=== PATIENT | female | born 1995 | race Caucasian/White ===

== ENCOUNTER 2022-10-02 00:32 | Emergency (ER) | payer OTHER ==
--- NOTE | 2022-10-02 01:03 | ED Physician Documentation ---
PD HPI MHE - Stated complaint Stated Complaint: SI - History obtained from History obtained from: Patient, Family (spouse) - History of Present Illness Primary symptom: Suicidal ideation, Depression, Anxiety Timing - onset: How many months ago (has had increasing anxiety and depression with suidical feelings for 2 months, increased the past week or so without obvious trigger. Does not have a specific plan. No suicidal gestures. Prior history of self-cutting but not in the past few years. Had more intense feeling of wanting to recent.) Contributing factors: Substance abuse - ETOH (had had alcohol use heavily up to a month ago and has been sober since that time.). No: Sig other Similar symptoms before: Diagnosis (depression when teenager with suicidal shola ation but no attempts. Voluntary hospitalization at that time. Trialed 2 different SSRIs and trazodone at night by provider without consistent improvement. Had regular counseling then. No counseling nor meds currently.) Recently seen: Not recently seen Review of Systems Constitutional: denies: Fever, Chills Nose: denies: Rhinorrhea / runny nose, Congestion Throat: denies: Sore throat Respiratory: denies: Cough GI: denies: Nausea, Vomiting, Diarrhea : reports: Irregular menses. denies: Now EGA Psychiatric: reports: Depressed, Anxiety. denies: Homicidal, Delusions, In somnia PD PAST MEDICAL HISTORY - Past Medical History Cardiovascular: None Respiratory: None Neuro: None Endocrine/Autoimmune: None - Present Medications Home Medications: Ambulatory Orders Medication Instructions Recorded Confirmed LORazepam [Ativan] 0.5 mg PO DAILY PRN #10 tablet 10/02/22 Sertraline [Zoloft] 50 mg PO DAILY 30 Days #30 tablet 10/02/22 - Allergies Allergies/Adverse Reactions: Allergies Allergy/AdvReac Type Severity Reaction Status Date / Time No Known Drug Allergies Allergy Verified 10/02/22 01:03 - Living Situation Living Situation: reports: With spouse/s.o. Living Arrangement: reports: At home - Social History Does the pt smoke?: No Substance Use and Type: Marijuana PD ED PE NORMAL - Vitals Vital signs reviewed: Yes - General General: Alert and oriented X 3 (accompanied by her , who appears very supportive. ), Well developed/nourished, Other (tearful and anxious. expressed fear of wanting to hurt herself. Has forward thinking of healthy relationship with her . ) - Neck Neck: Supple, no meningeal sign - Cardiac Cardiac: RRR, No murmur - Respiratory Respiratory: Clear bilaterally - Abdomen Abdomen: Soft, Non tender - Derm Derm: Normal color, Warm and dry - Neuro Neuro: Alert and oriented X 3, No motor deficit, Normal speech - Psych Psych: No: Normal mood (tearful, anxious, but expressive and conversant. ) Results - Vitals Vitals: Vital Signs - 24 hr 10/02/22 10/02/22 10/02/22 00:59 05:21 06:47 Temperature 36.4 C L 36.6 C 97.8 C H Heart Rate 98 86 84 Respiratory 16 16 16 Rate Blood Pressure 136/91 H 114/70 123/71 O2 Saturation 98 99 97 Oxygen O2 Source Room air - Labs Labs: Laboratory Tests 10/02/22 10/02/22 10/02/22 00:50 00:50 00:50 WBC RBC Hgb Hct MCV MCH MCHC RDW Plt Count MPV Neut # (Auto) Lymph # (Auto) [place] # (Auto) Eos # (Auto) Baso # (Auto) Absolute Nucleated RBC Nucleated RBC % Sodium Potassium Chloride Carbon Dioxide Anion Gap BUN Creatinine Estimated GFR (MDRD) Glucose Calcium Total Bilirubin AST ALT Alkaline Phosphatase Total Protein Albumin Globulin Albumin/Globulin Ratio Lipase TSH Urine Color YELLOW Urine Clarity CLEAR Urine pH 6.0 Ur Specific Thorp >=1.030 H Urine Protein 30 H Urine Glucose (UA) NEGATIVE Urine Ketones NEGATIVE Urine Occult Blood LARGE H Urine Nitrite NEGATIVE Urine Bilirubin NEGATIVE Urine Urobilinogen 0.2 (NORMAL) Ur Leukocyte Esterase NEGATIVE Urine RBC 6-10 H Urine WBC 0-3 Ur Squamous Epith Cells FEW Squamous Urine Crystals 0-2 Calcium Oxalate Amorphous Sediment Marked Urine Bacteria None Seen Ur Microscopic Review INDICATED Urine Culture Comments NOT INDICATED Urine HCG, Qual NEGATIVE Salicylates Urine Opiates Screen NEGATIVE Ur Oxycodone Screen NEGATIVE Urine Methadone Screen NEGATIVE Ur Propoxyphene Screen NEGATIVE Acetaminophen Ur Barbiturates Screen NEGATIVE Ur Tricyclics Screen NEGATIVE Ur Phencyclidine Scrn NEGATIVE Ur Amphetamine Screen NEGATIVE U Methamphetamines Scrn NEGATIVE U Benzodiazepines Scrn NEGATIVE Urine Cocaine Screen NEGATIVE U Cannabinoids Screen POSITIVE H Ethyl Alcohol 10/02/22 10/02/22 10/02/22 01:11 01:11 01:11 WBC 13.9 H RBC 5.02 Hgb 14.3 Hct 43.6 MCV 86.9 MCH 28.5 MCHC 32.8 RDW 12.8 Plt Count 314 MPV 9.6 Neut # (Auto) 10.4 H Lymph # (Auto) 2.4 [place] # (Auto) 0.9 Eos # (Auto) 0.1 Baso # (Auto) 0.1 Absolute Nucleated RBC 0.00 Nucleated RBC % 0.0 Sodium 139 Potassium 3.7 Chloride 102 Carbon Dioxide 26 Anion Gap 11.0 BUN 11 Creatinine 0.9 Estimated GFR (MDRD) 77 L Glucose 112 H Calcium 9.1 Total Bilirubin 0.5 AST 20 ALT 17 Alkaline Phosphatase 95 Total Protein 7.6 Albumin 4.7 Globulin 2.9 Albumin/Globulin Ratio 1.6 Lipase 26 TSH Urine Color Urine Clarity Urine pH Ur Specific [place] Urine Protein Urine Glucose (UA) Urine Ketones Urine Occult Blood Urine Nitrite Urine Bilirubin Urine Urobilinogen Ur Leukocyte Esterase Urine RBC Urine WBC Ur Squamous Epith Cells Urine Crystals Amorphous Sediment Urine Bacteria Ur Microscopic Review Urine Culture Comments Urine HCG, Qual Salicylates < 6.0 Urine Opiates Screen Ur Oxycodone Screen Urine Methadone Screen Ur Propoxyphene Screen Acetaminophen < 10 L Ur Barbiturates Screen Ur Tricyclics Screen Ur Phencyclidine Scrn Ur Amphetamine Screen U Methamphetamines Scrn U Benzodiazepines Scrn Urine Cocaine Screen U Cannabinoids Screen Ethyl Alcohol < 5.0 < 5.0 10/02/22 01:11 WBC RBC Hgb Hct MCV MCH MCHC RDW Plt Count MPV Neut # (Auto) Lymph # (Auto) [place] # (Auto) Eos # (Auto) Baso # (Auto) Absolute Nucleated RBC Nucleated RBC % Sodium Potassium Chloride Carbon Dioxide Anion Gap BUN Creatinine Estimated GFR (MDRD) Glucose Calcium Total Bilirubin AST ALT Alkaline Phosphatase Total Protein Albumin Globulin Albumin/Globulin Ratio Lipase TSH 2.68 Urine Color Urine Clarity Urine pH Ur Specific [place] Urine Protein Urine Glucose (UA) Urine Ketones Urine Occult Blood Urine Nitrite Urine Bilirubin Urine Urobilinogen Ur Leukocyte Esterase Urine RBC Urine WBC Ur Squamous Epith Cells Urine Crystals Amorphous Sediment Urine Bacteria Ur Microscopic Review Urine Culture Comments Urine HCG, Qual Salicylates Urine Opiates Screen Ur Oxycodone Screen Urine Methadone Screen Ur Propoxyphene Screen Acetaminophen Ur Barbiturates Screen Ur Tricyclics Screen Ur Phencyclidine Scrn Ur Amphetamine Screen U Methamphetamines Scrn U Benzodiazepines Scrn Urine Cocaine Screen U Cannabinoids Screen Ethyl Alcohol PD MEDICAL DECISION MAKING - ED course Complexity details: reviewed results, considered differential (anxiety and suicidal ideation without plan nor gesture. She has envisioned herself stabbing herself in the past but states is "too gruesome". Sounds like some history of OCD/perfectionistic personality with procrastination/self criticism manifestations. ), d/w patient, d/w portrait consultant ([facility] - see their consult note. Suggest outpt and start Rx meds, which pt agrees with. ) ED course: Patient is medically cleared. She does not have any regular counseling at this point. She is interested in getting set up with counseling and also trying medication again. It had been several years since she has been on any. She did not feel the couple of SSRIs she had had in the past were helpful. Trazodone had made her feel foggy during the day as well. This could have been dose related. The patient does not feel that she needs hospitalization necessarily. She is open to evaluation with telepsychiatry for opinion and advice. I did put in for a telepsychiatry consultation and we are on the list with them. The patient is with her in the room and both are resting and were advised that it can be several hours at times. I would see what telepsychiatry suggests. We could also have social work help connect her with counseling when they come in in the morning as likely she will take that amount of time for the telepsychiatry docket and report. If the patient is being released to home to start medication and counseling, I would think the patient might benefit from a low-dose ketamine infusion here in the ER prior to that. I have not broached that idea with her as yet but wanted to await her consult from psychiatry. Seen by [facility] who recommends outpatient treatment through [facility] and start Zoloft and short suupply Ativan. See consult note. Patient and are in agreement. Departure - Departure Disposition: 01 Home, Self Care Clinical Impression: Anxiety, Passive suicidal ideations, Depression Condition: Stable Record reviewed to determine appropriate education?: Yes Follow-Up: [facility] Dinorah Duarte [Provider Group] Prescriptions: LORazepam [Ativan] 0.5 mg PO DAILY PRN #10 tablet PRN Reason: Anxiety Sertraline [Zoloft] 50 mg PO DAILY 30 Days #30 tablet Comments: [place] the provide services for spouses and family as well. Contact them for follow-up counseling. And provided a sheet of other services in the [place] area in case they are unable to do that there. The psychiatrist you talked with suggested starting a antidepressant called Zoloft. Also to provide lorazepam/Ativan 0.5 mg to use once daily if needed for anxiety episodes. Use it only if needed. I provided prescriptions for these to the [facility] pharmacy in [place]. Discharge Date/Time: 10/02/22 06:49
[2022-10-02 01:07] LABS: MUDS CUTOFF CONCENTRATIONS CUTOFF CONC BELOW:
[2022-10-02 01:15] LABS: HCG UR QUAL NEGATIVE
[2022-10-02 01:23] LABS: AMPHETAMINE SCREEN,URINE NEGATIVE (NEGATIVE); BARBITURATE SCREEN,UR NEGATIVE (NEGATIVE); BENZODIAZEPINES SCREEN, URINE NEGATIVE (NEGATIVE); COCAINE SCREEN URINE NEGATIVE (NEGATIVE); METHADONE SCREEN, URINE NEGATIVE (NEGATIVE); METHAMPHETAMINES SCREEN, URINE NEGATIVE (NEGATIVE); OPIATE SCREEN, URINE NEGATIVE (NEGATIVE); OXYCODONE SCREEN, URINE NEGATIVE (NEGATIVE); PROPOXYPHENE SCREEN, URINE NEGATIVE (NEGATIVE); THC CANNABINOID SCREEN, URINE POSITIVE (NEGATIVE); TRICYCLIC ANTIDEPRESSANT,URINE NEGATIVE (NEGATIVE)
[2022-10-02 01:53] LABS: BASOPHILS # (AUTO) 0.1 10^3/uL (0.0-0.1); BASOPHILS % (AUTO) 0.4 %; EOSINOPHILS # (AUTO) 0.1 10^3/uL (0.0-0.7); EOSINOPHILS % (AUTO) 0.9 %; HCT - HEMATOCRIT 43.6 % (37.0-47.0); HGB - HEMOGLOBIN 14.3 g/dL (12.0-16.0); LYMPHOCYTES # (AUTO) 2.4 10^3/uL (1.5-3.5); LYMPHOCYTES % (AUTO) 17.2 %; MEAN CORPUSCULAR HEMOGLOBIN 28.5 pg (27.0-31.0); MEAN CORPUSCULAR HGB CONC 32.8 g/dL (32.0-36.0); MEAN CORPUSCULAR VOLUME 86.9 fL (81.0-99.0); MEAN PLATELET VOLUME 9.6 fL (7.9-10.8); MONOCYTES # (AUTO) 0.9 10^3/uL (0.0-1.0); MONOCYTES % (AUTO) 6.3 %; NEUTROPHILS # (AUTO) 10.4 10^3/uL (1.5-6.6); NEUTROPHILS % (AUTO) 74.8 %; PLT - PLATELET COUNT 314 10^3/uL (130-450); RED BLOOD COUNT 5.02 10^6/uL (4.20-5.40); RED CELL DISTRIBUTION WIDTH 12.8 % (12.0-15.0); WHITE BLOOD COUNT 13.9 x10^3/uL (4.8-10.8)
[2022-10-02 02:09] LABS: BILIRUBIN,URINE NEGATIVE (NEGATIVE); GLUCOSE, URINE (UA) NEGATIVE (NEGATIVE); KETONES,URINE (UA) NEGATIVE (NEGATIVE); LEUKOCYTE ESTERASE, URINE NEGATIVE (NEGATIVE); NITRITE,URINE NEGATIVE (NEGATIVE); OCCULT BLOOD,URINE LARGE (NEGATIVE); PROTEIN,URINE 30 mg/dL (NEGATIVE); UROBILINOGEN,URINE 0.2 (NORMAL) E.U./dL (NORMAL)
[2022-10-02 02:11] LABS: ACETAMINOPHEN < 10 ug/mL (10-30); ALBUMIN 4.7 g/dL (3.2-5.5); ALBUMIN/GLOBULIN RATIO 1.6 (1.0-2.2); ALKALINE PHOSPHATASE 95 IU/L (42-121); ALT ALANINE AMINOTRANSFERASE 17 IU/L (10-60); AST ASPARTATE AMINOTRANSFERASE 20 IU/L (10-42); BILIRUBIN,TOTAL 0.5 mg/dL (0.2-1.0); BUN - BLOOD UREA NITROGEN 11 mg/dL (6-20); CALCIUM 9.1 mg/dL (8.5-10.3); CARBON DIOXIDE - CO2 26 mmol/L (21-32); CHLORIDE 102 mmol/L (101-111); CREATININE 0.9 mg/dL (0.4-1.0); ETOH - ETHANOL < 5.0 mg/dL; GFR - MDRD 77 (>89); GLUCOSE 112 mg/dL (70-100); LIPASE 26 U/L (22-51); POTASSIUM 3.7 mmol/L (3.5-5.0); SALICYLATE < 6.0 mg/dL; SODIUM 139 mmol/L (135-145); TOTAL PROTEIN 7.6 g/dL (6.7-8.2)
[2022-10-02 02:11] LABS: CLARITY,URINE CLEAR (CLEAR)
[2022-10-02 02:16] LABS: BACTERIA,URINE None Seen /HPF (None Seen); SQUAMOUS EPITHELIAL CELL,UR FEW Squamous (<= Few); WBC,URINE 0-3 /HPF (0-5)
[2022-10-02 02:17] LABS: AMORPHOUS SEDIMENT,UR Marked /LPF; CRYSTALS,URINE 0-2 Calcium Oxalate /LPF
[2022-10-02] MEDS ORDERED: LORazepam 1 MG TABLET PO STA (02:24)
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
[2022-10-02 06:49] VITALS: BP 123/71
== END 2022-10-02 06:49 | disposition home or self-care (01) ==
LOC: ED 00:32
DX: R45.851 Suicidal ideations (principal); F41.9 Anxiety disorder, unspecified; F32.A Depression, unspecified
CPT/HCPCS: 36415; 80053; 80306; 80307; 80320; 80329; 81001; 81025; 83690; 84443; 85025; 99281; 99284; G0425; J8499; Q3014; 81003; 87086